=== PATIENT | male | born 1930 | race Caucasian/White ===

== ENCOUNTER 2016-11-30 16:29 | Inpatient (IN) | payer MEDICARE, BC ==
[2016-11-30 19:08] LABS: Glucose,Whole Blood 150 mg/dL (75-99)
[2016-11-30] MEDS ORDERED: MELATONIN 3 MG TABLET PO PRN (22:33)
[2016-11-30] MEDS ORDERED: FUROSEMIDE 10 MG/ML 10 ML VIAL IV STA (23:00)
[2016-12-01] MEDS: glipiZIDE 10 MG TAB PO SCH ×2 (00:01→08:22)
[2016-12-01 00:02] LABS: Glucose,Whole Blood 190 mg/dL (75-99)
[2016-12-01] MEDS: MIRTAZAPINE 15 MG TAB PO SCH ×2 (00:04→21:13)
[2016-12-01] MEDS: HYDROcodone/APAP 7.5-325MG 1 EACH TAB PO PRN ×3 (00:04→08:21)
[2016-12-01 05:56] LABS: Basophils # (A) 0.1 k/uL (0-0.2); Basophils % (A) 1 %; CH 29.9; CHCM 32.5; Eosinophils # (A) 0.2 k/uL (0-0.7); Eosinophils % (A) 3 %; HCT 35.4 % (39.0-53.0); HDW 2.81; HGB 11.1 gm/dL (13.0-17.5); Luc # (Auto) 0.17; Luc % (Auto) 3; Lymphocytes # (A) 1.8 k/uL (1.0-4.8); Lymphocytes % (A) 29 %; MCHC 31.5 g/dL (31.0-37.0); MCV 92.1 fL (80.0-100.0); Mean Platelet Volume 7.3; Monocytes # (A) 0.4 k/uL (0-1.0); Monocytes % (A) 7 %; Neutrophils # (A) 3.6 k/uL (1.3-7.7); Neutrophils % (A) 58 %; RBC 3.84 m/uL (4.30-5.90); RDW 15.7 % (11.5-15.5); WBC 6.3 k/uL (3.8-10.6); WBC (Perox) 6.11
[2016-12-01 05:59] LABS: INR 1.8 (<1.1); Prothrombin Time 17.5 sec (9.0-12.0)
[2016-12-01 06:02] LABS: Glucose,Whole Blood 90 mg/dL (75-99)
[2016-12-01 06:03] LABS: Calcium 9.2 mg/dL (8.4-10.2); Magnesium 1.9 mg/dL (1.6-2.3)
[2016-12-01] MEDS: INSULIN LISPRO (humaLOG) 300 UNIT/3 ML VIAL SQ SCH ×4 (06:16→21:14)
[2016-12-01] MEDS: ALBUTEROL NEBULIZED 2.5 MG/3 ML INHALATION SCH ×4 (07:04→20:47)
--- NOTE | 2016-12-01 07:45 | XR ---
EXAMINATION TYPE: XR chest 2V DATE OF EXAM: 12/01/2016 6:36 AM COMPARISON: 11/02/2015 HISTORY: 85-year-old male follow-up exam TECHNIQUE: Frontal and lateral views FINDINGS: Heart remains upper limits of normal in size. Mild diffuse interstitial prominence is noted with a pe rsistent right hilar prominence and blunting left costophrenic angle with hazy left basilar opacity. Left shoulder arthroplasty present. Left anterior chest wall pacemaker generator with right ventricul ar lead. IMPRESSION: 1. Correlate for mild CHF with pulmonary vascular congestion. Right hilar prominence is unchanged and could reflect underlying pulmonary arterial hypertension. 2. Small left pleural effusion with adjacent atelectasis and/or consolidation.
[2016-12-01] MEDS: ATENOLOL 25 MG TAB PO SCH ×2 (08:21→21:13)
[2016-12-01] MEDS: FUROSEMIDE 10 MG/ML 10 ML VIAL IV SCH ×2 (08:21→21:13)
[2016-12-01] MEDS: PANTOPRAZOLE 40 MG/10 ML VIAL IVP SCH (08:22)
[2016-12-01 08:49] LABS: Glucose,Whole Blood 212 mg/dL (75-99)
[2016-12-01] MEDS ORDERED: INSULIN DETEMIR 100 UNIT/ML 10 ML VIAL SQ SCH (09:00)
--- NOTE | 2016-12-01 09:25 | P.CRDCN ---
History of Present Illness Consult date: 12/01/16 Reason for Consult (text): CHF Chief complaint: shortness of breath and weight gain History of present illness: This is a pleasant 85-year-old gentleman who follows regularly with Dr. Bartlett in the office. He has a known history of atrial fibrillation, permanent pacemaker placement, congestive heart failure with last known EF 35%, hypertension, CAD, COPD requiring home oxygen, hyperlipidemia and diabetes mellitus. Presented to [place] emergency department with complaints of increasing shortness of breath with episodes of feeling his heart racing as well as some chest discomfort and a weight gain of 10 pounds in less than one week. He also had some complaints of dizziness during times of rapid heartbeat , no loss of consciousness. Chest x-ray showed mild CHF with pulmonary vascular congestion and BNP level was 3020. EKG showed atrial fibrillation with occasional paced beats and occasional PVCs. Patient has been on Lasix 60 mg IV push every 8 hours and is diuresing. Laboratory values show BUN 28 creatinine 1.43. Upon examination this morning, patient is sitting up in a chair. His main complaint this morning is of back pain for which he has chronic back pain and takes [place] at home. He feels his breathing is somewhat better however continues to complain of shortness of breath and occasional chest discomfort. Past Medical History Past Medical History: Atrial Fibrillation, Asthma, Coronary Artery Disease (CAD) , Heart Failure, COPD, CVA/TIA, Dementia, Diabetes Mellitus, Deep Vein Thrombosis (DVT), GERD/Reflux, Hyperlipidemia, Hypertension, Myocardial Infarction ([place]), Osteoarthritis (OA), Pneumonia, Pulmonary Embolus (PE), Rheumatoid Arthritis (RA) Additional Past Medical History / Comment(s): Peripheral vascular disease, chronic back pain, hiatal hernia,OCC CONSTIPATION, history of bowel obstruction , history of hiatal hernia. He has a 60% occlusion in NAD and some abnormalities in the right coronary artery based on the most recent cardiac catheterization from November 2014. The patient also has a permanent pacemaker in place. Patient's left anterior function is well-preserved.02 2 LITERS N/ C.insomnia, chropnic lower back pain"nerve damage", callus rt foot"gained 10# in a week" Last Myocardial Infarction Date:: 1967 History of Any Multi-Drug Resistant Organisms: None Reported Past Surgical History: Adenoidectomy, Appendectomy, Cholecystectomy, Heart Catheterization, Joint Replacement, Pacemaker, Tonsillectomy Additional Past Surgical History / Comment(s): lt shoulder replacement, na knee replacements, x5 back sx, x2 prostate, na cataracts sx-lens implants, sx for bowel obstruction Past Anesthesia/Blood Transfusion Reactions: Previous Problems w/ Anesthesia Additional Past Anesthesia/Blood Transfusion Reaction / Comment(s): once bp dropped and they held off on the sx. Type of Cardiac Device: Permanent Pacemaker Device Placement Date:: 2005? Past Psychological History: Anxiety Additional Psychological History / Comment(s): xanax Smoking Status: Former smoker Past Alcohol Use History: Heavy Additional Past Alcohol Use History / Comment(s): started smoking at age 14- smoked 1-2 ppd,quit 30 years ago, used to drink heavy but quit 12 years ago Past Drug Use History: None Reported - Past Family History Father Family Medical History: Cancer Additional Family Medical History / Comment(s): leukemia Mother Family Medical History: Cancer Additional Family Medical History / Comment(s): breast ca w/ mets to bone Medications and Allergies Home Medications Medication Instructions Recorded Confirmed Type Donepezil [Aricept] 10 mg PO DAILY 12/09/14 11/30/16 History Isosorbide Mononitrate ER [Imdur] 60 mg PO DAILY 12/09/14 11/30/16 History Lisinopril [Zestril] 10 mg PO DAILY 12/09/14 11/30/16 History Niacin [Niacin ER] 500 mg PO HS 12/09/14 11/30/16 History Omeprazole [PriLOSEC] 20 mg PO AC-BRKFST 12/09/14 11/30/16 History Spironolactone [Aldactone] 25 mg PO DAILY 12/09/14 11/30/16 History glipiZIDE [Glucotrol] 20 mg PO BID 12/09/14 11/30/16 History Insulin Detemir [Levemir] 16 unit SQ DAILY 08/03/15 11/30/16 History Potassium Chloride [Klor-Con 20] 20 meq PO BID 08/08/15 11/30/16 History ALPRAZolam [Xanax] 0.25 mg PO TID PRN 11/30/16 11/30/16 History Albuterol Inhaler [Ventolin Hfa 2 puff INHALATION RT-QID PRN 11/30/16 11/30/16 History Inhaler] Albuterol Nebulized [Ventolin 2.5 mg INHALATION RT-Q4H PRN 11/30/16 11/30/16 History Nebulized] Atenolol 25 mg PO BID 11/30/16 11/30/16 History Cyclobenzaprine [Flexeril] 10 mg PO TID 11/30/16 11/30/16 History DULoxetine HCL [Cymbalta] 30 mg PO BID 11/30/16 11/30/16 History Ergocalciferol [Vitamin D2] 50,000 unit PO Q7D 11/30/16 11/30/16 History Ferrous Sulfate [Feosol] 325 mg PO BID 11/30/16 11/30/16 History Furosemide [Lasix] 40 mg PO DAILY 11/30/16 11/30/16 History HYDROcodone/APAP 7.5-325MG [[place] 1 tab PO TID PRN 11/30/16 11/30/16 History 7.5-325] Insulin Lispro [humaLOG Kwikpen] 5 unit SQ AC-TID 11/30/16 11/30/16 History Magnesium Hydroxide [Milk of 2,400 mg PO HS PRN 11/30/16 11/30/16 History Magnesia] Magnesium Oxide 420 mg PO BID 11/30/16 11/30/16 History Mirtazapine 30 mg PO HS 11/30/16 11/30/16 History Multivitamins, Thera [Multivitamin] 1 tab PO DAILY 11/30/16 11/30/16 History Polyethylene Glycol 3350 [Miralax] 17 gm PO DAILY 11/30/16 11/30/16 History Warfarin [Coumadin] 5 mg PO DAILY 11/30/16 11/30/16 History traZODone HCL 150 mg PO HS 11/30/16 11/30/16 History Allergies Allergy/AdvReac Type Severity Reaction Status Date / Time diazepam [From Valium] Allergy Rash/Hives Verified 11/30/16 19:23 morphine Allergy Rash/Hives Verified 11/30/16 19:23 Penicillins Allergy Rash/Hives Verified 11/30/16 19:23 tetanus and diphtheria Allergy Swelling Verified 11/30/16 19:23 toxoids [tetanus & diphtheria toxoids] venom-honey bee Allergy Unknown Verified 11/30/16 19:23 [bee venom (honey bee)] Physical Exam Vitals: Vital Signs Temp Pulse Pulse Resp BP Pulse Ox 12/01/16 08:00 96.8 F L 83 22 141/68 96 12/01/16 07:14 56 L 12/01/16 07:04 56 L 12/01/16 04:00 98.0 F 53 L 18 115/60 98 12/01/16 00:00 98.1 F 82 18 120/64 99 11/30/16 20:00 98.1 F 81 18 119/60 98 11/30/16 18:56 98.2 F 77 20 117/66 99 Intake and Output 11/30/16 12/01/16 12/01/16 22:59 06:59 14:59 Output Total 150 1650 175 Balance -150 -1650 -175 Output: Urine 150 1650 175 Uretheral (Schwartz) 175 Other: Voiding Method Indwelling Catheter Indwelling Catheter Indwelling Catheter Weight 99.7 kg 99 kg PHYSICAL EXAMINATION: HEENT: Head is atraumatic, normocephalic. Pupils equal, round. Neck is supple. There is elevated jugular venous pressure. HEART EXAMINATION: Heart sounds irregular regular, S1 and S2 normal. No murmur or gallop heard. CHEST EXAMINATION: Lungs reveal diminished air entry bilaterally with crackles to bilateral lower lobes. No chest wall tenderness is noted on palpation or with deep breathing. ABDOMEN: Soft, nontender. Bowel sounds are heard. No organomegaly noted. Indwelling catheter in place with clear yellow urine. EXTREMITIES: 1+ peripheral pulses with evidence of trace peripheral edema and no calf tenderness noted. NEUROLOGIC patient is awake, alert and oriented x3. . Results 12/01/16 05:20 12/01/16 05:20 Coagulation 12/01/16 Range/Units 05:20 PT 17.5 H (9.0-12.0) sec CBC 12/01/16 Range/Units 05:20 WBC 6.3 (3.8-10.6) k/uL RBC 3.84 L (4.30-5.90) m/uL Hgb 11.1 L (13.0-17.5) gm/dL Hct 35.4 L (39.0-53.0) % Plt Count 143 L (150-450) k/uL Comprehensive Metabolic Panel 12/01/16 Range/Units 05:20 Sodium 144 (137-145) mmol/L Potassium 4.0 (3.5-5.1) mmol/L Chloride 100 (98-107) mmol/L Carbon Dioxide 35 H (22-30) mmol/L BUN 28 H (9-20) mg/dL Creatinine 1.43 H (0.66-1.25) mg/dL Glucose 80 (74-99) mg/dL Calcium 9.2 (8.4-10.2) mg/dL Current Medications Generic Name Dose Route Start Last Admin Trade Name Freq PRN Reason Stop Dose Admin Acetaminophen/Hydrocodone Bitart 1 each 11/30/16 22:57 12/01/16 08:21 [place] 7.5-325 PO 1 each TID PRN Administration Pain Albuterol Sulfate 2.5 mg 12/01/16 08:00 12/01/16 07:04 Ventolin Nebulized INHALATION 2.5 mg RT-QID NORMA Administration Atenolol 25 mg 12/01/16 09:00 12/01/16 08:21 Tenormin PO 25 mg BID NORMA Administration Furosemide 60 mg 12/01/16 09:00 12/01/16 08:21 Lasix IV 60 mg Q12HR NORMA Administration Glipizide 20 mg 11/30/16 22:30 12/01/16 08:22 Glucotrol PO 20 mg AC-BID NORMA Administration Insulin Detemir 16 unit 12/01/16 09:00 12/01/16 08:20 Levemir SQ 16 unit DAILY NORMA Administration Insulin Human Lispro 0 unit 12/01/16 07:30 12/01/16 06:16 Humalog SQ Not Given ACHS [facility] Protocol Melatonin 3 mg 11/30/16 22:33 12/01/16 00:04 Melatonin PO 3 mg HS PRN Administration sleep Mirtazapine 30 mg 11/30/16 22:30 12/01/16 00:04 Remeron PO 30 mg HS NORMA Administration Pantoprazole Sodium 40 mg 12/01/16 09:00 12/01/16 08:22 Protonix IVP 40 mg DAILY NORMA Administration Warfarin Sodium 5 mg 12/01/16 18:00 Coumadin PO 1800 NORMA Intake and Output 11/30/16 12/01/16 12/01/16 22:59 06:59 14:59 Output Total 150 1650 175 Balance -150 -1650 -175 Output: Urine 150 1650 175 Uretheral (Schwartz) 175 Other: Voiding Method Indwelling Catheter Indwelling Catheter Indwelling Catheter Weight 99.7 kg 99 kg 12/01/16 05:20 12/01/16 05:20 Assessment and Plan Plan: Assessment and plan #1 acute on chronic systolic congestive heart failure #2 hypertension #3 chronic atrial fibrillation, on Coumadin with subtherapeutic INR #4 coronary artery disease #5 COPD, oxygen dependent #6 diabetes mellitus #7 sick sinus syndrome, permanent pacemaker in place From cardiac standpoint, we recommend continuing IV Lasix. We will follow daily weights, intake and outputs and renal function. We will increase patient' s Coumadin dose slightly and follow INR to maintain between 2 and 3. We will resume the patient's beta savage, KIRTI inhibitor and Aldactone. We'll continue to follow the patient and provide further recommendations accordingly. 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 Patient was seen and examined.
[2016-12-01] MEDS: HYDROmorphone 1 MG/ML 1 ML SYRINGE IVP PRN ×6 (09:57→23:26)
[2016-12-01 11:10] LABS: Hemoglobin A1C 6.4 % (4.2-6.1)
[2016-12-01] MEDS: ISOSORBIDE MONONITRATE ER 60 MG TAB.ER.24H PO SCH (11:22)
[2016-12-01] MEDS: LISINOPRIL 10 MG TAB PO SCH (11:22)
[2016-12-01] MEDS: SPIRONOLACTONE 25 MG TAB PO SCH (11:22)
[2016-12-01 11:58] LABS: Glucose,Whole Blood 188 mg/dL (75-99)
[2016-12-01] MEDS: MAGNESIUM SULFATE-D5W PMX 1 GM in DEXTROSE/WATER 1 100ML.BAG IVPB SCH ×2 (15:15→17:18)
[2016-12-01 15:16] VITALS: BMI 32.2
--- NOTE | 2016-12-01 15:33 | P.HPIM ---
History of Present Illness H&P Date: 12/01/16 Chief Complaint: Difficulty breathing 85-year-old gentleman with history of systolic heart failure is admitted to the hospital from [place]. Patient probably has a history of heart failure with a EF of around 35% in the past. Patient over the last week. Has gained over 10 pounds. States that he has been compliant his diet and fluid resection. Patient was seen by his primary care doctor increase his Lasix dose from 20 mg a 40 mrem however patient continue to have difficulty breathing and increased swelling in his lower extremities hence was sent ER. Patient was triaged to [facility] for higher level of care. States to be feeling slightly better however continues to have difficulty breathing. Patient does complain of orthopnea and PND at this time. Denies having any chest pain, nausea, abdominal pain, change in bowel habits, urinary urgency or frequency. Patient currently has a Schwartz catheter at [facility] . Patient apparently has been weak over the last few weeks. Review of Systems All systems: negative (Noted in HPI) Past Medical History Past Medical History: Atrial Fibrillation, Asthma, Coronary Artery Disease (CAD) , Heart Failure, COPD, CVA/TIA, Dementia, Diabetes Mellitus, Deep Vein Thrombosis (DVT), GERD/Reflux, Hyperlipidemia, Hypertension, Myocardial Infarction ([place]), Osteoarthritis (OA), Pneumonia, Pulmonary Embolus ([place]), Rheumatoid Arthritis (RA) Additional Past Medical History / Comment(s): Peripheral vascular disease, chronic back pain, hiatal hernia,OCC CONSTIPATION, history of bowel obstruction , history of hiatal hernia. He has a 60% occlusion in NAD and some abnormalities in the right coronary artery based on the most recent cardiac catheterization from November 2014. The patient also has a permanent pacemaker in place. Patient's left anterior function is well-preserved.02 2 LITERS N/ C.insomnia, chropnic lower back pain"nerve damage", callus rt foot"gained 10# in a week" Last Myocardial Infarction Date:: 1967 History of Any Multi-Drug Resistant Organisms: None Reported Past Surgical History: Adenoidectomy, Appendectomy, Cholecystectomy, Heart Catheterization, Joint Replacement, Pacemaker, Tonsillectomy Additional Past Surgical History / Comment(s): lt shoulder replacement, na knee replacements, x5 back sx, x2 prostate, na cataracts sx-lens implants, sx for bowel obstruction Past Anesthesia/Blood Transfusion Reactions: Previous Problems w/ Anesthesia Additional Past Anesthesia/Blood Transfusion Reaction / Comment(s): once bp dropped and they held off on the sx. Type of Cardiac Device: Permanent Pacemaker Device Placement Date:: 2005? Past Psychological History: Anxiety Additional Psychological History / Comment(s): xanax Smoking Status: Former smoker Past Alcohol Use History: Heavy Additional Past Alcohol Use History / Comment(s): started smoking at age 14- smoked 1-2 ppd,quit 30 years ago, used to drink heavy but quit 12 years ago Past Drug Use History: None Reported - Past Family History Father Family Medical History: Cancer Additional Family Medical History / Comment(s): leukemia Mother Family Medical History: Cancer Additional Family Medical History / Comment(s): breast ca w/ mets to bone Medications and Allergies Home Medications Medication Instructions Recorded Confirmed Type Donepezil [Aricept] 10 mg PO DAILY 12/09/14 11/30/16 History Isosorbide Mononitrate ER [Imdur] 60 mg PO DAILY 12/09/14 11/30/16 History Lisinopril [Zestril] 10 mg PO DAILY 12/09/14 11/30/16 History Niacin [Niacin ER] 500 mg PO HS 12/09/14 11/30/16 History Omeprazole [PriLOSEC] 20 mg PO AC-BRKFST 12/09/14 11/30/16 History Spironolactone [Aldactone] 25 mg PO DAILY 12/09/14 11/30/16 History glipiZIDE [Glucotrol] 20 mg PO BID 12/09/14 11/30/16 History Insulin Detemir [Levemir] 16 unit SQ DAILY 08/03/15 11/30/16 History Potassium Chloride [Klor-Con 20] 20 meq PO BID 08/08/15 11/30/16 History ALPRAZolam [Xanax] 0.25 mg PO TID PRN 11/30/16 11/30/16 History Albuterol Inhaler [Ventolin Hfa 2 puff INHALATION RT-QID PRN 11/30/16 11/30/16 History Inhaler] Albuterol Nebulized [Ventolin 2.5 mg INHALATION RT-Q4H PRN 11/30/16 11/30/16 History Nebulized] Atenolol 25 mg PO BID 11/30/16 11/30/16 History Cyclobenzaprine [Flexeril] 10 mg PO TID 11/30/16 11/30/16 History DULoxetine HCL [Cymbalta] 30 mg PO BID 11/30/16 11/30/16 History Ergocalciferol [Vitamin D2] 50,000 unit PO Q7D 11/30/16 11/30/16 History Ferrous Sulfate [Feosol] 325 mg PO BID 11/30/16 11/30/16 History Furosemide [Lasix] 40 mg PO DAILY 11/30/16 11/30/16 History HYDROcodone/APAP 7.5-325MG [[place] 1 tab PO TID PRN 11/30/16 11/30/16 History 7.5-325] Insulin Lispro [humaLOG Kwikpen] 5 unit SQ AC-TID 11/30/16 11/30/16 History Magnesium Hydroxide [Milk of 2,400 mg PO HS PRN 11/30/16 11/30/16 History Magnesia] Magnesium Oxide 420 mg PO BID 11/30/16 11/30/16 History Mirtazapine 30 mg PO HS 11/30/16 11/30/16 History Multivitamins, Thera [Multivitamin] 1 tab PO DAILY 11/30/16 11/30/16 History Polyethylene Glycol 3350 [Miralax] 17 gm PO DAILY 11/30/16 11/30/16 History Warfarin [Coumadin] 5 mg PO DAILY 11/30/16 11/30/16 History traZODone HCL 150 mg PO HS 11/30/16 11/30/16 History Allergies Allergy/AdvReac Type Severity Reaction Status Date / Time diazepam [From Valium] Allergy Rash/Hives Verified 11/30/16 19:23 morphine Allergy Rash/Hives Verified 11/30/16 19:23 Penicillins Allergy Rash/Hives Verified 11/30/16 19:23 tetanus and diphtheria Allergy Swelling Verified 11/30/16 19:23 toxoids [tetanus & diphtheria toxoids] venom-honey bee Allergy Unknown Verified 11/30/16 19:23 [bee venom (honey bee)] Physical Exam Vitals: Vital Signs Temp Pulse Pulse Resp BP Pulse Ox 12/01/16 15:22 96.8 F L 89 20 101/58 100 12/01/16 11:36 65 18 12/01/16 11:35 97.0 F L 65 18 110/64 100 12/01/16 11:13 88 12/01/16 11:01 88 12/01/16 08:00 96.8 F L 83 22 141/68 96 12/01/16 07:14 56 L 12/01/16 07:04 56 L 12/01/16 04:00 98.0 F 53 L 18 115/60 98 12/01/16 00:00 98.1 F 82 18 120/64 99 11/30/16 20:00 98.1 F 81 18 119/60 98 11/30/16 18:56 98.2 F 77 20 117/66 99 Intake and Output 12/01/16 12/01/16 12/01/16 06:59 14:59 22:59 Intake Total 480 Output Total 1650 850 Balance -1650 -370 Intake: Oral 480 Output: Urine 1650 850 Uretheral (Schwartz) 850 Other: Voiding Method Indwelling Catheter Indwelling Catheter Weight 99 kg 99 kg Patient Weight 12/02/16 06:59 Weight 99 kg Gen. appearance alert oriented 3 Lungs crackles at the bases no wheezing or rhonchi. Heart S1-S2 heard S3 is not appreciated systolic murmurs appreciated that is 2 out of 6 in intensity. Abdomen is soft nontender no organomegaly Lower extremities 1+ pitting edema is appreciated Neurologically no focal motor or sensory deficits noted. Results CBC & Chem 7: 12/01/16 05:20 12/01/16 05:20 Labs: Abnormal Lab Results - Last 24 Hours (Table) 11/30/16 11/30/16 12/01/16 Range/Units 19:06 23:59 05:20 RBC (4.30-5.90) m/uL Hgb (13.0-17.5) gm/dL Hct (39.0-53.0) % RDW (11.5-15.5) % Plt Count (150-450) k/uL PT (9.0-12.0) sec Carbon Dioxide (22-30) mmol/L BUN (9-20) mg/dL Creatinine (0.66-1.25) mg/dL POC Glucose (mg/dL) 150 H 190 H (75-99) mg/dL Hemoglobin A1c 6.4 H (4.2-6.1) % 12/01/16 12/01/16 12/01/16 Range/Units 05:20 05:20 05:20 RBC 3.84 L (4.30-5.90) m/uL Hgb 11.1 L (13.0-17.5) gm/dL Hct 35.4 L (39.0-53.0) % RDW 15.7 H (11.5-15.5) % Plt Count 143 L (150-450) k/uL PT 17.5 H (9.0-12.0) sec Carbon Dioxide 35 H (22-30) mmol/L BUN 28 H (9-20) mg/dL Creatinine 1.43 H (0.66-1.25) mg/dL POC Glucose (mg/dL) (75-99) mg/dL Hemoglobin A1c (4.2-6.1) % 12/01/16 12/01/16 Range/Units 08:46 11:54 RBC (4.30-5.90) m/uL Hgb (13.0-17.5) gm/dL Hct (39.0-53.0) % RDW (11.5-15.5) % Plt Count (150-450) k/uL PT (9.0-12.0) sec Carbon Dioxide (22-30) mmol/L BUN (9-20) mg/dL Creatinine (0.66-1.25) mg/dL POC Glucose (mg/dL) 212 H 188 H (75-99) mg/dL Hemoglobin A1c (4.2-6.1) % Assessment and Plan Plan: #1 acute exacerbation of systolic heart failure #2 history of DVT #3 history of hypertension #4 history of dyslipidemia #5 diabetes mellitus type 2 #6 acute kidney injury secondary to #1 #7 nonsustained VT #86 sinus syndrome status post pacemaker placement Plan Continue IV Lasix to 60 mg twice a day. Glipizide will be discontinued due to kidney dysfunction. Levemir will be increased to 20 units. Echocardiogram was reviewed Cardiology is consulted. Blood pressure stable. Patient is having multiple PVCs however increase the beta savage to an acute exacerbation would cause the patient to go overtfailure. Hence continue ongoing care patient does have a pacemaker
[2016-12-01] MEDS ORDERED: DOCUSATE 100 MG CAP PO PRN (15:36)
[2016-12-01 17:20] LABS: Glucose,Whole Blood 78 mg/dL (75-99)
[2016-12-01] MEDS ORDERED: WARFARIN 7.5 MG TAB PO ONE (18:00)
[2016-12-01] MEDS ORDERED: WARFARIN 5 MG TAB PO SCH (18:00)
[2016-12-01 20:48] LABS: Glucose,Whole Blood 156 mg/dL (75-99)
[2016-12-01] MEDS: POTASSIUM CHLORIDE ER 20 MEQ TAB.ER PO SCH (21:13)
[2016-12-02] MEDS: HYDROmorphone 1 MG/ML 1 ML SYRINGE IVP PRN ×6 (03:25→23:03)
[2016-12-02 06:19] LABS: Basophils # (A) 0.1 k/uL (0-0.2); Basophils % (A) 1 %; CH 29.7; CHCM 32.2; Eosinophils # (A) 0.2 k/uL (0-0.7); Eosinophils % (A) 2 %; HCT 35.6 % (39.0-53.0); HDW 2.68; HGB 11.4 gm/dL (13.0-17.5); Luc # (Auto) 0.13; Luc % (Auto) 2; Lymphocytes # (A) 1.7 k/uL (1.0-4.8); Lymphocytes % (A) 23 %; MCH 29.6 pg (25.0-35.0); MCV 92.5 fL (80.0-100.0); Mean Platelet Volume 7.3; Monocytes # (A) 0.7 k/uL (0-1.0); Monocytes % (A) 9 %; Neutrophils # (A) 4.7 k/uL (1.3-7.7); Neutrophils % (A) 63 %; RBC 3.85 m/uL (4.30-5.90); RDW 15.6 % (11.5-15.5); WBC 7.4 k/uL (3.8-10.6); WBC (Perox) 7.66
[2016-12-02 06:20] LABS: Glucose,Whole Blood 156 mg/dL (75-99)
[2016-12-02] MEDS: INSULIN LISPRO (humaLOG) 300 UNIT/3 ML VIAL SQ SCH ×4 (06:27→21:33)
[2016-12-02 06:30] LABS: INR 1.6 (<1.1); Prothrombin Time 15.1 sec (9.0-12.0)
[2016-12-02 06:31] LABS: Calcium 9.1 mg/dL (8.4-10.2); Magnesium 2.1 mg/dL (1.6-2.3); Potassium 4.4 mmol/L (3.5-5.1); Total Bilirubin 0.9 mg/dL (0.2-1.3); Total Protein 6.9 g/dL (6.3-8.2)
[2016-12-02] MEDS: ALBUTEROL NEBULIZED 2.5 MG/3 ML INHALATION SCH ×4 (08:10→20:46)
[2016-12-02] MEDS: FUROSEMIDE 10 MG/ML 10 ML VIAL IV SCH ×2 (08:30→21:33)
[2016-12-02] MEDS: SPIRONOLACTONE 25 MG TAB PO SCH (08:30)
[2016-12-02] MEDS: POTASSIUM CHLORIDE ER 20 MEQ TAB.ER PO SCH ×2 (08:30→21:34)
[2016-12-02] MEDS: ISOSORBIDE MONONITRATE ER 60 MG TAB.ER.24H PO SCH (08:31)
[2016-12-02] MEDS: PANTOPRAZOLE 40 MG/10 ML VIAL IVP SCH (08:31)
[2016-12-02] MEDS: ATENOLOL 25 MG TAB PO SCH ×2 (08:31→21:33)
[2016-12-02] MEDS: LISINOPRIL 10 MG TAB PO SCH (08:31)
[2016-12-02] MEDS: INSULIN DETEMIR 100 UNIT/ML 10 ML VIAL SQ SCH (08:34)
--- NOTE | 2016-12-02 11:50 | P.PN ---
Subjective 85-year-old gentleman with history of systolic heart failure is admitted to the hospital from [place]. Patient probably has a history of heart failure with a EF of around 35% in the past. Patient over the last week. Has gained over 10 pounds. States that he has been compliant his diet and fluid resection. Patient was seen by his primary care doctor increase his Lasix dose from 20 mg a 40 mrem however patient continue to have difficulty breathing and increased swelling in his lower extremities hence was sent ER. Patient was triaged to [facility] for higher level of care. States to be feeling slightly better however continues to have difficulty breathing. Patient does complain of orthopnea and PND at this time. Denies having any chest pain, nausea, abdominal pain, change in bowel habits, urinary urgency or frequency. Patient currently has a Schwartz catheter at [facility] . Patient apparently has been weak over the last few weeks. 12/02/2016 States to be feeling significantly better. Denies having any chest pain. Patient is able to lay flat or night. Denies having any breathing difficulty. States that this is a Best he has felt in over a month. Objective - Vital Signs Vital signs: Vital Signs Temp 97.6 F 12/02/16 11:30 Pulse 69 12/02/16 11:30 Resp 20 12/02/16 11:30 BP 123/41 12/02/16 11:30 Pulse Ox 98 12/02/16 11:30 Intake & Output 12/01/16 12/02/16 12/02/16 18:59 06:59 18:59 Intake Total 600 720 240 Output Total 850 1825 750 Balance -250 -1105 -510 Weight 99 kg 99.4 kg Intake: Oral 600 720 240 Output: Urine 850 1825 750 Uretheral (Schwartz) 850 200 Other: Voiding Method Indwelling Catheter Indwelling Catheter Toilet Urinal # Voids 1 1 1 # Bowel Movements 0 - Exam Gen. appearance alert oriented 3 no distress Lungs trace crackles good air movement Heart S1-S2 heard S3 is not appreciated no murmurs appreciated Abdomen is soft nontender organomegaly Neurologically no focal motor or sensory deficits appreciated Lower extremities 1+ pitting edema bilaterally noted. - Labs CBC & Chem 7: 12/02/16 05:32 12/02/16 05:32 Labs: Abnormal Lab Results - Last 24 Hours (Table) 12/01/16 12/01/16 12/02/16 Range/Units 11:54 20:47 05:32 RBC (4.30-5.90) m/uL Hgb (13.0-17.5) gm/dL Hct (39.0-53.0) % RDW (11.5-15.5) % PT 15.1 H (9.0-12.0) sec Chloride (98-107) mmol/L Carbon Dioxide (22-30) mmol/L BUN (9-20) mg/dL Creatinine (0.66-1.25) mg/dL Glucose (74-99) mg/dL POC Glucose (mg/dL) 188 H 156 H (75-99) mg/dL 12/02/16 12/02/16 12/02/16 Range/Units 05:32 05:32 06:19 RBC 3.85 L (4.30-5.90) m/uL Hgb 11.4 L (13.0-17.5) gm/dL Hct 35.6 L (39.0-53.0) % RDW 15.6 H (11.5-15.5) % PT (9.0-12.0) sec Chloride 96 L (98-107) mmol/L Carbon Dioxide 33 H (22-30) mmol/L BUN 33 H (9-20) mg/dL Creatinine 1.60 H (0.66-1.25) mg/dL Glucose 153 H (74-99) mg/dL POC Glucose (mg/dL) 156 H (75-99) mg/dL Assessment and Plan Plan: #1 acute exacerbation of systolic heart failure #2 history of DVT #3 history of hypertension #4 history of dyslipidemia #5 diabetes mellitus type 2 #6 acute kidney injury secondary to #1 #7 nonsustained VT #86 sinus syndrome status post pacemaker placement Plan Continue IV diuresis. Patient is improving. Will likely need another 24-48 hours of inpatient care. Blood pressure stable. Patient is having multiple PVCs however increase the beta savage to an acute exacerbation would cause the patient to go overtfailure. Hence continue ongoing care patient does have a pacemaker
[2016-12-02 11:57] LABS: Glucose,Whole Blood 146 mg/dL (75-99)
--- NOTE | 2016-12-02 14:16 | P.PN ---
Subjective Principal diagnosis: CHF this is a pleasant 85-year-old gentleman who sees Dr. Bartlett as an outpatient with a known history of severe cardiomyopathy, chronic atrial fibrillation, status post pacemaker, as well as chronic respiratory failure,was admitted to the hospital with acute exacerbation of congestive heart failure. On follow-up with the patient today,he continues to be short of breath and not feeling well. He is on Lasix IV which I am going to continue. The last echocardiogram showed severe cardiomyopathy with an ejection fractionof 35%. I will continue the patient on the Lasix IV. Continue monitor the kidney function and electrolytes. He is on Coumadin regarding the A. fib. Objective - Vital Signs Vital signs: Vital Signs Temp 97.6 F 12/02/16 11:30 Pulse 66 12/02/16 13:23 Resp 20 12/02/16 11:30 BP 123/41 12/02/16 11:30 Pulse Ox 98 12/02/16 11:30 Intake & Output 12/01/16 12/02/16 12/02/16 18:59 06:59 18:59 Intake Total 600 720 480 Output Total 850 1825 750 Balance -250 -1105 -270 Weight 99 kg 99.4 kg Intake: Oral 600 720 480 Output: Urine 850 1825 750 Uretheral (Schwartz) 850 200 Other: Voiding Method Indwelling Catheter Indwelling Catheter Toilet Urinal # Voids 1 1 1 # Bowel Movements 0 - Constitutional General appearance: Present: no acute distress - Respiratory Respiratory: bilateral: rales - Cardiovascular Rhythm: irregularly irregular - Labs CBC & Chem 7: 12/02/16 05:32 12/02/16 05:32 Labs: Abnormal Lab Results - Last 24 Hours (Table) 12/01/16 12/02/16 12/02/16 Range/Units 20:47 05:32 05:32 RBC (4.30-5.90) m/uL Hgb (13.0-17.5) gm/dL Hct (39.0-53.0) % RDW (11.5-15.5) % PT 15.1 H (9.0-12.0) sec Chloride 96 L (98-107) mmol/L Carbon Dioxide 33 H (22-30) mmol/L BUN 33 H (9-20) mg/dL Creatinine 1.60 H (0.66-1.25) mg/dL Glucose 153 H (74-99) mg/dL POC Glucose (mg/dL) 156 H (75-99) mg/dL 12/02/16 12/02/16 12/02/16 Range/Units 05:32 06:19 11:56 RBC 3.85 L (4.30-5.90) m/uL Hgb 11.4 L (13.0-17.5) gm/dL Hct 35.6 L (39.0-53.0) % RDW 15.6 H (11.5-15.5) % PT (9.0-12.0) sec Chloride (98-107) mmol/L Carbon Dioxide (22-30) mmol/L BUN (9-20) mg/dL Creatinine (0.66-1.25) mg/dL Glucose (74-99) mg/dL POC Glucose (mg/dL) 156 H 146 H (75-99) mg/dL Assessment and Plan Plan: assessment #1 acute exacerbation of congestive heart failure secondary to systolic dysfunction #2 chronic atrial fibrillation with controlled heart rate #3 known severe cardiomyopathy #4 status post permanent pacemaker #5 chronic respiratory failure new Plan #1 continue the Lasix IV #2 continue monitor the kidney function and electrolytes #3 continue Coumadin and monitor INR
[2016-12-02 17:04] LABS: Glucose,Whole Blood 112 mg/dL (75-99)
[2016-12-02] MEDS ORDERED: MAGNESIUM HYDROXIDE 2,400 MG/10 ML CUP PO PRN (17:38)
[2016-12-02 20:33] LABS: Glucose,Whole Blood 129 mg/dL (75-99)
[2016-12-02] MEDS: HYDROcodone/APAP 7.5-325MG 1 EACH TAB PO PRN (21:31)
[2016-12-02] MEDS: MIRTAZAPINE 15 MG TAB PO SCH (21:34)
[2016-12-03] MEDS: HYDROmorphone 1 MG/ML 1 ML SYRINGE IVP PRN ×3 (04:00→21:20)
[2016-12-03 06:07] LABS: Glucose,Whole Blood 122 mg/dL (75-99)
[2016-12-03 06:32] VITALS: RESP 18
[2016-12-03 06:35] LABS: Basophils # (A) 0.1 k/uL (0-0.2); Basophils % (A) 1 %; CH 29.8; CHCM 32.6; Eosinophils # (A) 0.2 k/uL (0-0.7); Eosinophils % (A) 3 %; HCT 35.8 % (39.0-53.0); HDW 2.74; HGB 11.5 gm/dL (13.0-17.5); Luc # (Auto) 0.16; Luc % (Auto) 2; Lymphocytes % (A) 27 %; MCH 29.5 pg (25.0-35.0); MCHC 32.1 g/dL (31.0-37.0); Mean Platelet Volume 7.6; Monocytes # (A) 0.6 k/uL (0-1.0); Monocytes % (A) 8 %; Neutrophils # (A) 4.4 k/uL (1.3-7.7); Neutrophils % (A) 59 %; RDW 15.9 % (11.5-15.5); WBC 7.5 k/uL (3.8-10.6); WBC (Perox) 7.68
[2016-12-03 06:39] LABS: INR 1.6 (<1.1); Prothrombin Time 15.2 sec (9.0-12.0)
[2016-12-03] MEDS: INSULIN LISPRO (humaLOG) 300 UNIT/3 ML VIAL SQ SCH ×4 (06:44→21:19)
[2016-12-03 06:47] LABS: Calcium 9.4 mg/dL (8.4-10.2); Potassium 4.1 mmol/L (3.5-5.1); Total Bilirubin 1.1 mg/dL (0.2-1.3); Total Protein 6.9 g/dL (6.3-8.2)
[2016-12-03] MEDS: ATENOLOL 25 MG TAB PO SCH ×2 (08:10→21:19)
[2016-12-03] MEDS: FUROSEMIDE 10 MG/ML 10 ML VIAL IV SCH ×2 (08:10→21:19)
[2016-12-03] MEDS: ISOSORBIDE MONONITRATE ER 60 MG TAB.ER.24H PO SCH (08:10)
[2016-12-03] MEDS: SPIRONOLACTONE 25 MG TAB PO SCH (08:11)
[2016-12-03] MEDS: LISINOPRIL 10 MG TAB PO SCH (08:11)
[2016-12-03] MEDS: POTASSIUM CHLORIDE ER 20 MEQ TAB.ER PO SCH ×2 (08:11→21:20)
[2016-12-03] MEDS: PANTOPRAZOLE 40 MG/10 ML VIAL IVP SCH (08:11)
[2016-12-03] MEDS: HYDROcodone/APAP 7.5-325MG 1 EACH TAB PO PRN ×2 (08:11→16:44)
[2016-12-03] MEDS: INSULIN DETEMIR 100 UNIT/ML 10 ML VIAL SQ SCH (08:16)
[2016-12-03] MEDS: ALBUTEROL NEBULIZED 2.5 MG/3 ML INHALATION SCH ×4 (09:12→21:22)
--- NOTE | 2016-12-03 11:27 | P.PN ---
Subjective Principal diagnosis: CHF This is a pleasant 85-year-old gentleman who follows regularly with Dr. Bartlett in the office. He has a known history of severe cardiomyopathy, chronic persistent atrial fibrillation, admitted to the hospital with congestive cardiac failure. He continues to diurese well on IV Lasix. BUN 40, creatinine 1.5, INR 1.6, hemoglobin 11.5. Continues to be on Lasix 60 mg IV twice a day. Objective - Vital Signs Vital signs: Vital Signs Temp 97.1 F L 12/03/16 08:00 Pulse 88 12/03/16 09:22 Resp 18 12/03/16 04:00 BP 102/54 12/03/16 08:00 Pulse Ox 98 12/03/16 08:00 Intake & Output 12/02/16 12/03/16 12/03/16 18:59 06:59 18:59 Intake Total 600 200 Output Total 950 650 200 Balance -350 -650 0 Weight 100 kg Intake: Oral 600 200 Output: Urine 950 650 200 Uretheral (Schwartz) 200 Other: Voiding Method Toilet Toilet Urinal Urinal # Voids 1 1 - Exam PHYSICAL EXAMINATION: HEENT: Head is atraumatic, normocephalic. Pupils equal, round. Neck is supple. There is elevated jugular venous pressure. HEART EXAMINATION: S1 and S2 irregular irregular systolic murmur heard. CHEST EXAMINATION: Lungs are clear with diminished air entry to bilateral bases. ABDOMEN: Soft, obese, nontender. Bowel sounds are heard. No organomegaly noted. EXTREMITIES: 2+ peripheral pulses with 1+ evidence of peripheral edema and no calf tenderness noted. NEUROLOGIC patient is awake, alert and oriented -3. . - Labs CBC & Chem 7: 12/03/16 05:40 12/03/16 05:40 Labs: Abnormal Lab Results - Last 24 Hours (Table) 12/02/16 12/02/16 12/02/16 Range/Units 11:56 17:00 20:28 RBC (4.30-5.90) m/uL Hgb (13.0-17.5) gm/dL Hct (39.0-53.0) % RDW (11.5-15.5) % PT (9.0-12.0) sec Chloride (98-107) mmol/L Carbon Dioxide (22-30) mmol/L BUN (9-20) mg/dL Creatinine (0.66-1.25) mg/dL Glucose (74-99) mg/dL POC Glucose (mg/dL) 146 H 112 H 129 H (75-99) mg/dL 12/03/16 12/03/16 12/03/16 Range/Units 05:40 05:40 05:40 RBC 3.90 L (4.30-5.90) m/uL Hgb 11.5 L (13.0-17.5) gm/dL Hct 35.8 L (39.0-53.0) % RDW 15.9 H (11.5-15.5) % PT 15.2 H (9.0-12.0) sec Chloride 97 L (98-107) mmol/L Carbon Dioxide 33 H (22-30) mmol/L BUN 40 H (9-20) mg/dL Creatinine 1.50 H (0.66-1.25) mg/dL Glucose 128 H (74-99) mg/dL POC Glucose (mg/dL) (75-99) mg/dL 12/03/16 Range/Units 06:00 RBC (4.30-5.90) m/uL Hgb (13.0-17.5) gm/dL Hct (39.0-53.0) % RDW (11.5-15.5) % PT (9.0-12.0) sec Chloride (98-107) mmol/L Carbon Dioxide (22-30) mmol/L BUN (9-20) mg/dL Creatinine (0.66-1.25) mg/dL Glucose (74-99) mg/dL POC Glucose (mg/dL) 122 H (75-99) mg/dL Assessment and Plan (1) Systolic CHF, acute on chronic Status: Acute (2) Chronic a-fib Status: Acute (3) Diabetes Status: Acute (4) HTN (hypertension) Status: Acute (5) Hyperlipemia Status: Acute (6) PVD (peripheral vascular disease) Status: Acute (7) Pacemaker Status: Acute (8) Ischemic cardiomyopathy Status: Acute Plan: From cardiology's perspective, we will recommend to continue current dose of IV Lasix. Check daily lytes BUN and creatinine along with daily weights. Give 5 mg of Coumadin today. DNP note has been reviewed, I agree with a documented findings and plan of care. Patient was seen and examined.
[2016-12-03 12:07] LABS: Glucose,Whole Blood 174 mg/dL (75-99)
--- NOTE | 2016-12-03 12:41 | CDI ---
In responding to this query, please exercise your independent professional judgment. The [facility] Coding Staff and Clinical Documentation Specialists appreciate your assistance in clarifying documentation, maintaining compliance with coding guidelines, accurately documenting patients condition and capturing severity of illness. The fact that a question is asked does not imply that any particular answer is desired or expected. Communication forms are a method of clarifying documentation and are not made part of the Legal Health Record. Thank you in advance for your clarification. Last Revision, January 2016 Mohit Rose [address] [facility] [place] [address] Documentation Clarification Form Date: 12/03/2016 12:35:00 PM From: Sarah De La Cruz Admit Date: 11/30/2016 6:45:00 PM Patient Name: Chan Chen Visit Number: [id number] Dr. Ronal Kunz History/Risk Factors: CHF COPD Afib CAD Diabetes Mellitus Home O2 Exsmoker Clinical Indicators: Vital signs: RR 20, O2 sats 99% on 2L nasal cannula Cardiology has documented 'chronic respiratory failure' Treatment: Breathing tx IV Lasix O2 nasal cannula 2L In your professional opinion, can you please clarify if these findings signify one of the following conditions? o Chronic Respiratory failure with hypercapnia o Chronic Respiratory failure with hypoxia o Other Diagnosis, please specify o Unable to determine Please document in your progress notes and discharge summary in order to capture severity of illness and risk of mortality. Include clinical findings that support your diagnosis. FYI: Press F11 to launch patient chart. ___x__ Place X here if this finding has no clinical significance, is not applicable or if you are not able to provide any additional documentation. LEAH
--- NOTE | 2016-12-03 16:36 | P.PN ---
Subjective 85-year-old gentleman with history of systolic heart failure is admitted to the hospital from [place]. Patient probably has a history of heart failure with a EF of around 35% in the past. Patient over the last week. Has gained over 10 pounds. States that he has been compliant his diet and fluid resection. Patient was seen by his primary care doctor increase his Lasix dose from 20 mg a 40 mrem however patient continue to have difficulty breathing and increased swelling in his lower extremities hence was sent ER. Patient was triaged to [facility] for higher level of care. States to be feeling slightly better however continues to have difficulty breathing. Patient does complain of orthopnea and PND at this time. Denies having any chest pain, nausea, abdominal pain, change in bowel habits, urinary urgency or frequency. Patient currently has a Schwartz catheter at [facility] . Patient apparently has been weak over the last few weeks. 12/02/2016 States to be feeling significantly better. Denies having any chest pain. Patient is able to lay flat or night. Denies having any breathing difficulty. States that this is a Best he has felt in over a month. 12/03/16 States to feeling slightly better. States to be weak. Has not had a bm in a few days. Objective - Vital Signs Vital signs: Vital Signs Temp 97.1 F L 12/03/16 08:00 Pulse 90 12/03/16 16:08 Resp 18 12/03/16 04:00 BP 102/67 12/03/16 12:00 Pulse Ox 96 12/03/16 12:00 Intake & Output 12/02/16 12/03/16 12/03/16 18:59 06:59 18:59 Intake Total 600 200 Output Total 950 650 200 Balance -350 -650 0 Weight 100 kg Intake: Oral 600 200 Output: Urine 950 650 200 Uretheral (Schwartz) 200 Other: Voiding Method Toilet Toilet Urinal Urinal # Voids 1 1 - Exam Gen. appearance alert oriented 3 no distress Lungs trace crackles good air movement Heart S1-S2 heard S3 is not appreciated no murmurs appreciated Abdomen is soft nontender organomegaly Neurologically no focal motor or sensory deficits appreciated Lower extremities 1+ pitting edema bilaterally noted. - Labs CBC & Chem 7: 12/03/16 05:40 12/03/16 05:40 Labs: Abnormal Lab Results - Last 24 Hours (Table) 12/02/16 12/02/16 12/03/16 Range/Units 17:00 20:28 05:40 RBC (4.30-5.90) m/uL Hgb (13.0-17.5) gm/dL Hct (39.0-53.0) % RDW (11.5-15.5) % PT 15.2 H (9.0-12.0) sec Chloride (98-107) mmol/L Carbon Dioxide (22-30) mmol/L BUN (9-20) mg/dL Creatinine (0.66-1.25) mg/dL Glucose (74-99) mg/dL POC Glucose (mg/dL) 112 H 129 H (75-99) mg/dL 12/03/16 12/03/16 12/03/16 Range/Units 05:40 05:40 06:00 RBC 3.90 L (4.30-5.90) m/uL Hgb 11.5 L (13.0-17.5) gm/dL Hct 35.8 L (39.0-53.0) % RDW 15.9 H (11.5-15.5) % PT (9.0-12.0) sec Chloride 97 L (98-107) mmol/L Carbon Dioxide 33 H (22-30) mmol/L BUN 40 H (9-20) mg/dL Creatinine 1.50 H (0.66-1.25) mg/dL Glucose 128 H (74-99) mg/dL POC Glucose (mg/dL) 122 H (75-99) mg/dL 12/03/16 Range/Units 12:04 RBC (4.30-5.90) m/uL Hgb (13.0-17.5) gm/dL Hct (39.0-53.0) % RDW (11.5-15.5) % PT (9.0-12.0) sec Chloride (98-107) mmol/L Carbon Dioxide (22-30) mmol/L BUN (9-20) mg/dL Creatinine (0.66-1.25) mg/dL Glucose (74-99) mg/dL POC Glucose (mg/dL) 174 H (75-99) mg/dL Assessment and Plan Plan: #1 acute exacerbation of systolic heart failure #2 history of DVT #3 history of hypertension #4 history of dyslipidemia #5 diabetes mellitus type 2 #6 acute kidney injury secondary to #1 #7 nonsustained VT #86 sinus syndrome status post pacemaker placement #9 Chronic hypoxic respiratory failure on 2-3 l at home. Plan Continue IV diuresis. Patient is improving. CXR reviewed. Dulcolax suppository. PT consult. Repeat labs moises.
[2016-12-03] MEDS ORDERED: BISACODYL 10 MG SUPP RECTAL PRN (16:45)
[2016-12-03 16:52] LABS: Glucose,Whole Blood 92 mg/dL (75-99)
[2016-12-03] MEDS ORDERED: WARFARIN 5 MG TAB PO ONE (18:00)
[2016-12-03 21:05] LABS: Glucose,Whole Blood 162 mg/dL (75-99)
[2016-12-03] MEDS: MIRTAZAPINE 15 MG TAB PO SCH (21:20)
[2016-12-04] MEDS: HYDROmorphone 1 MG/ML 1 ML SYRINGE IVP PRN ×5 (02:04→23:33)
[2016-12-04 06:02] LABS: Glucose,Whole Blood 181 mg/dL (75-99)
[2016-12-04] MEDS: INSULIN LISPRO (humaLOG) 300 UNIT/3 ML VIAL SQ SCH ×4 (06:35→23:36)
[2016-12-04 06:52] LABS: INR 1.4 (<1.1); Prothrombin Time 13.8 sec (9.0-12.0)
[2016-12-04 07:13] LABS: Calcium 9.4 mg/dL (8.4-10.2); Total Bilirubin 1.4 mg/dL (0.2-1.3); Total Protein 7.5 g/dL (6.3-8.2)
[2016-12-04 07:31] LABS: Basophils # (A) 0.1 k/uL (0-0.2); Basophils % (A) 1 %; CH 29.5; CHCM 31.1; Eosinophils # (A) 0.3 k/uL (0-0.7); Eosinophils % (A) 3 %; HCT 38.3 % (39.0-53.0); HDW 2.69; Hypochromasia Slight; Luc # (Auto) 0.22; Luc % (Auto) 2; Lymphocytes # (A) 2.2 k/uL (1.0-4.8); Lymphocytes % (A) 24 %; MCH 29.9 pg (25.0-35.0); MCHC 31.4 g/dL (31.0-37.0); MCV 95.2 fL (80.0-100.0); Mean Platelet Volume 7.8; Monocytes # (A) 0.7 k/uL (0-1.0); Monocytes % (A) 8 %; Neutrophils # (A) 5.8 k/uL (1.3-7.7); Neutrophils % (A) 63 %; RBC 4.03 m/uL (4.30-5.90); RDW 15.4 % (11.5-15.5); WBC 9.2 k/uL (3.8-10.6); WBC (Perox) 9.52
[2016-12-04] MEDS: ALBUTEROL NEBULIZED 2.5 MG/3 ML INHALATION SCH ×4 (08:25→20:23)
[2016-12-04 08:32] LABS: Glucose,Whole Blood 130 mg/dL (75-99)
[2016-12-04] MEDS: POTASSIUM CHLORIDE ER 20 MEQ TAB.ER PO SCH ×2 (08:42→20:49)
[2016-12-04] MEDS: ATENOLOL 25 MG TAB PO SCH ×2 (08:42→20:48)
[2016-12-04] MEDS: SPIRONOLACTONE 25 MG TAB PO SCH (08:43)
[2016-12-04] MEDS: FUROSEMIDE 10 MG/ML 10 ML VIAL IV SCH ×2 (08:43→20:48)
[2016-12-04] MEDS: LISINOPRIL 10 MG TAB PO SCH (08:43)
[2016-12-04] MEDS: PANTOPRAZOLE 40 MG/10 ML VIAL IVP SCH (08:43)
[2016-12-04] MEDS: HYDROcodone/APAP 7.5-325MG 1 EACH TAB PO PRN ×2 (08:46→14:53)
[2016-12-04] MEDS: INSULIN DETEMIR 100 UNIT/ML 10 ML VIAL SQ SCH (08:46)
[2016-12-04] MEDS: ISOSORBIDE MONONITRATE ER 60 MG TAB.ER.24H PO SCH (11:46)
[2016-12-04 11:57] LABS: Glucose,Whole Blood 171 mg/dL (75-99)
--- NOTE | 2016-12-04 14:10 | P.PN ---
Subjective Principal diagnosis: CHF This is a pleasant 85-year-old gentleman who follows regularly with Dr. Bartlett in the office. He has a known history of severe cardiomyopathy, chronic persistent atrial fibrillation, admitted to the hospital with congestive cardiac failure. He continues to diurese well on IV Lasix. The weight today is down 2 kg. Creatinine 1.3. On Lasix 60 mg IV every 12 hourly. Objective - Vital Signs Vital signs: Vital Signs Temp 97.8 F 12/04/16 11:01 Pulse 82 12/04/16 11:53 Resp 18 12/04/16 11:01 BP 128/62 12/04/16 11:01 Pulse Ox 94 L 12/04/16 11:01 Intake & Output 12/03/16 12/04/16 12/04/16 18:59 06:59 18:59 Intake Total 200 180 Output Total 200 650 Balance 0 -650 180 Weight 98 kg Intake: Oral 200 180 Output: Urine 200 650 Other: Voiding Method Toilet Toilet Urinal Urinal # Voids 1 # Bowel Movements 1 - Exam PHYSICAL EXAMINATION: HEENT: Head is atraumatic, normocephalic. Pupils equal, round. Neck is supple. There is elevated jugular venous pressure. HEART EXAMINATION: S1 and S2 irregular irregular systolic murmur heard. CHEST EXAMINATION: Lungs are clear with diminished air entry to bilateral bases. ABDOMEN: Soft, obese, nontender. Bowel sounds are heard. No organomegaly noted. EXTREMITIES: 2+ peripheral pulses with 1+ evidence of peripheral edema and no calf tenderness noted. NEUROLOGIC patient is awake, alert and oriented -3. . - Labs CBC & Chem 7: 12/04/16 05:37 12/04/16 05:37 Labs: Abnormal Lab Results - Last 24 Hours (Table) 12/03/16 12/04/16 12/04/16 Range/Units 21:04 05:37 05:37 RBC (4.30-5.90) m/uL Hgb (13.0-17.5) gm/dL Hct (39.0-53.0) % PT 13.8 H (9.0-12.0) sec Chloride 95 L (98-107) mmol/L Carbon Dioxide 33 H (22-30) mmol/L BUN 44 H (9-20) mg/dL Creatinine 1.38 H (0.66-1.25) mg/dL Glucose 180 H (74-99) mg/dL POC Glucose (mg/dL) 162 H (75-99) mg/dL Total Bilirubin 1.4 H (0.2-1.3) mg/dL Alkaline Phosphatase 127 H (38-126) U/L 12/04/16 12/04/16 12/04/16 Range/Units 05:37 06:00 08:28 RBC 4.03 L (4.30-5.90) m/uL Hgb 12.0 L (13.0-17.5) gm/dL Hct 38.3 L (39.0-53.0) % PT (9.0-12.0) sec Chloride (98-107) mmol/L Carbon Dioxide (22-30) mmol/L BUN (9-20) mg/dL Creatinine (0.66-1.25) mg/dL Glucose (74-99) mg/dL POC Glucose (mg/dL) 181 H 130 H (75-99) mg/dL Total Bilirubin (0.2-1.3) mg/dL Alkaline Phosphatase (38-126) U/L 12/04/16 Range/Units 11:47 RBC (4.30-5.90) m/uL Hgb (13.0-17.5) gm/dL Hct (39.0-53.0) % PT (9.0-12.0) sec Chloride (98-107) mmol/L Carbon Dioxide (22-30) mmol/L BUN (9-20) mg/dL Creatinine (0.66-1.25) mg/dL Glucose (74-99) mg/dL POC Glucose (mg/dL) 171 H (75-99) mg/dL Total Bilirubin (0.2-1.3) mg/dL Alkaline Phosphatase (38-126) U/L Assessment and Plan (1) Systolic CHF, acute on chronic Status: Acute (2) Chronic a-fib Status: Acute (3) Diabetes Status: Acute (4) HTN (hypertension) Status: Acute (5) Hyperlipemia Status: Acute (6) PVD (peripheral vascular disease) Status: Acute (7) Pacemaker Status: Acute (8) Ischemic cardiomyopathy Status: Acute Plan: From cardiology's perspective, we will recommend to continue current dose of IV Lasix. We will repeat a chest x-ray tomorrow. We'll also recheck a BNP level. Check daily lytes BUN and creatinine along with daily weights. Give 5 mg of Coumadin today. PT/INR in the morning. DNP note has been reviewed, I agree with a documented findings and plan of care. Patient was seen and examined.
--- NOTE | 2016-12-04 16:03 | XR ---
EXAMINATION TYPE: XR chest 2V DATE OF EXAM: 12/04/2016 3:48 PM COMPARISON: 12/01/2016 HISTORY: Shortness of breath TECHNIQUE: Frontal and lateral views of the chest are obtained. FINDINGS: Scattered senescent parenchymal changes noted. Hyperinflation compatible with COPD. Left basilar increased density may reflect atelectasis, infiltrate and/or effusion. Heart size is stable. Mediastinal structures are stable and grossly unremarkable. No evidence for hilar prominence. Degenerative changes dorsal spine. IMPRESSION: 1.Left basilar increased density may reflect atelectasis, infiltrate and/or effusion.
[2016-12-04 17:41] LABS: Glucose,Whole Blood 135 mg/dL (75-99)
[2016-12-04] MEDS ORDERED: WARFARIN 5 MG TAB PO ONE (18:00)
--- NOTE | 2016-12-04 18:01 | P.PN ---
Subjective 85-year-old gentleman with history of systolic heart failure is admitted to the hospital from [place]. Patient probably has a history of heart failure with a EF of around 35% in the past. Patient over the last week. Has gained over 10 pounds. States that he has been compliant his diet and fluid resection. Patient was seen by his primary care doctor increase his Lasix dose from 20 mg a 40 mrem however patient continue to have difficulty breathing and increased swelling in his lower extremities hence was sent ER. Patient was triaged to [facility] for higher level of care. States to be feeling slightly better however continues to have difficulty breathing. Patient does complain of orthopnea and PND at this time. Denies having any chest pain, nausea, abdominal pain, change in bowel habits, urinary urgency or frequency. Patient currently has a Schwartz catheter at [facility] . Patient apparently has been weak over the last few weeks. 12/02/2016 States to be feeling significantly better. Denies having any chest pain. Patient is able to lay flat or night. Denies having any breathing difficulty. States that this is a Best he has felt in over a month. 12/03/16 States to feeling slightly better. States to be weak. Has not had a bm in a few days. 12/04/16 Was tired with minimal exertion this am. however was able to ambulate over 100ft without difficulty. No complaints of chest pain, n/v, FRED during my examination. Objective - Vital Signs Vital signs: Vital Signs Temp 98.4 F 12/04/16 15:02 Pulse 82 12/04/16 15:02 Resp 18 12/04/16 15:02 BP 108/60 12/04/16 15:02 Pulse Ox 95 12/04/16 15:02 Intake & Output 12/03/16 12/04/16 12/04/16 18:59 06:59 18:59 Intake Total 200 180 Output Total 354 123 6516 Balance 0 -650 -820 Weight 98 kg Intake: Oral 200 180 Output: Urine 423 410 8298 Other: Voiding Method Toilet Toilet Urinal Urinal # Bowel Movements 1 - Exam Gen. appearance alert oriented 3 no distress Lungs trace crackles good air movement Heart S1-S2 heard S3 is not appreciated no murmurs appreciated Abdomen is soft nontender organomegaly Neurologically no focal motor or sensory deficits appreciated Lower extremities 1+ pitting edema bilaterally noted.Improving. - Labs CBC & Chem 7: 12/04/16 05:37 12/04/16 05:37 Labs: Abnormal Lab Results - Last 24 Hours (Table) 12/03/16 12/04/16 12/04/16 Range/Units 21:04 05:37 05:37 RBC (4.30-5.90) m/uL Hgb (13.0-17.5) gm/dL Hct (39.0-53.0) % PT 13.8 H (9.0-12.0) sec Chloride 95 L (98-107) mmol/L Carbon Dioxide 33 H (22-30) mmol/L BUN 44 H (9-20) mg/dL Creatinine 1.38 H (0.66-1.25) mg/dL Glucose 180 H (74-99) mg/dL POC Glucose (mg/dL) 162 H (75-99) mg/dL Total Bilirubin 1.4 H (0.2-1.3) mg/dL Alkaline Phosphatase 127 H (38-126) U/L 12/04/16 12/04/16 12/04/16 Range/Units 05:37 06:00 08:28 RBC 4.03 L (4.30-5.90) m/uL Hgb 12.0 L (13.0-17.5) gm/dL Hct 38.3 L (39.0-53.0) % PT (9.0-12.0) sec Chloride (98-107) mmol/L Carbon Dioxide (22-30) mmol/L BUN (9-20) mg/dL Creatinine (0.66-1.25) mg/dL Glucose (74-99) mg/dL POC Glucose (mg/dL) 181 H 130 H (75-99) mg/dL Total Bilirubin (0.2-1.3) mg/dL Alkaline Phosphatase (38-126) U/L 12/04/16 12/04/16 Range/Units 11:47 16:49 RBC (4.30-5.90) m/uL Hgb (13.0-17.5) gm/dL Hct (39.0-53.0) % PT (9.0-12.0) sec Chloride (98-107) mmol/L Carbon Dioxide (22-30) mmol/L BUN (9-20) mg/dL Creatinine (0.66-1.25) mg/dL Glucose (74-99) mg/dL POC Glucose (mg/dL) 171 H 135 H (75-99) mg/dL Total Bilirubin (0.2-1.3) mg/dL Alkaline Phosphatase (38-126) U/L Assessment and Plan Plan: #1 acute exacerbation of systolic heart failure #2 history of DVT #3 history of hypertension #4 history of dyslipidemia #5 diabetes mellitus type 2 #6 acute kidney injury secondary to #1 #7 nonsustained VT #86 sinus syndrome status post pacemaker placement #9 Chronic hypoxic respiratory failure on 2-3 l at home. Plan Continue IV diuresis. Patient is improving. CXR reviewed. Continue ongoing care for another 24 hrs CXR findings likely atelectasis, no clinical signs of PNA> Dc home with home care. after a get up and go test moises am.
[2016-12-04] MEDS: MIRTAZAPINE 15 MG TAB PO SCH (20:49)
[2016-12-04 21:16] LABS: Glucose,Whole Blood 142 mg/dL (75-99)
[2016-12-05] MEDS: HYDROmorphone 1 MG/ML 1 ML SYRINGE IVP PRN ×3 (04:15→21:37)
[2016-12-05 06:14] LABS: Glucose,Whole Blood 170 mg/dL (75-99)
[2016-12-05 06:33] LABS: Basophils # (A) 0.1 k/uL (0-0.2); Basophils % (A) 1 %; CH 30.1; CHCM 32.5; Eosinophils # (A) 0.4 k/uL (0-0.7); Eosinophils % (A) 5 %; HDW 2.68; HGB 12.2 gm/dL (13.0-17.5); Luc # (Auto) 0.15; Luc % (Auto) 2; Lymphocytes # (A) 1.9 k/uL (1.0-4.8); Lymphocytes % (A) 24 %; MCHC 31.2 g/dL (31.0-37.0); MCV 92.9 fL (80.0-100.0); Mean Platelet Volume 7.5; Monocytes # (A) 0.7 k/uL (0-1.0); Monocytes % (A) 9 %; Neutrophils # (A) 4.7 k/uL (1.3-7.7); Neutrophils % (A) 60 %; RDW 15.6 % (11.5-15.5); WBC 7.9 k/uL (3.8-10.6); WBC (Perox) 7.53
[2016-12-05 06:38] LABS: INR 1.4 (<1.1); Prothrombin Time 13.6 sec (9.0-12.0)
[2016-12-05 06:40] LABS: Calcium 9.3 mg/dL (8.4-10.2); Magnesium 1.8 mg/dL (1.6-2.3); Potassium 4.5 mmol/L (3.5-5.1); Total Bilirubin 1.2 mg/dL (0.2-1.3); Total Protein 7.5 g/dL (6.3-8.2)
[2016-12-05] MEDS: INSULIN LISPRO (humaLOG) 300 UNIT/3 ML VIAL SQ SCH ×4 (06:52→21:36)
[2016-12-05] MEDS: LISINOPRIL 10 MG TAB PO SCH (08:23)
[2016-12-05] MEDS: FUROSEMIDE 10 MG/ML 10 ML VIAL IV SCH (08:23)
[2016-12-05] MEDS: ISOSORBIDE MONONITRATE ER 60 MG TAB.ER.24H PO SCH (08:23)
[2016-12-05] MEDS: PANTOPRAZOLE 40 MG/10 ML VIAL IVP SCH (08:24)
[2016-12-05] MEDS: ATENOLOL 25 MG TAB PO SCH ×2 (08:24→21:36)
[2016-12-05] MEDS: POTASSIUM CHLORIDE ER 20 MEQ TAB.ER PO SCH ×2 (08:24→21:36)
[2016-12-05] MEDS: SPIRONOLACTONE 25 MG TAB PO SCH (08:24)
[2016-12-05] MEDS: INSULIN DETEMIR 100 UNIT/ML 10 ML VIAL SQ SCH (08:28)
[2016-12-05] MEDS: HYDROcodone/APAP 7.5-325MG 1 EACH TAB PO PRN ×2 (10:30→17:46)
--- NOTE | 2016-12-05 11:00 | ECHOF ---
Referral Reason:lv function MEASUREMENTS -------- HEIGHT: 180.3 cm WEIGHT: 97.1 kg BP: 91/46 IVSd: 1.0 cm (0.6 - 1.1) LVIDd: 4.4 cm (3.9 - 5.3) LVPWd: 1.2 cm (0.6 - 1.1) IVSs: 1.6 cm LVIDs: 2.6 cm LVPWs: 1.8 cm LAESV Index (A-L): 38.87 ml/m Ao Diam: 3.5 cm (2.0 - 3.7) AV Cusp: 2.0 cm (1.5 - 2.6) LA Diam: 3.3 cm (2.7 - 3.8) MV EXCURSION: 19.089 mm (> 18.000) MV EF SLOPE: 88 mm/s (70 - 150) EPSS: 2.6 cm MV E Toñito: 1.06 m/s MV DecT: 215 ms MV A [place]ñito: 0.45 m/s MV E/A Ratio: 2.35 RAP: 5.00 mmHg RVSP: 36.41 mmHg FINDINGS -------- Sinus rhythm with extra systolic beats. This was a technically good study. There is mild concentric left ventricular hypertrophy. Overall left ventricular systolic function is mildly impaired with, an EF between 45 - 50 %. Basal inferior LV wall motion is hypokinetic. Mid inferior LV wall motion is hypokinetic. The right ventricle is normal in size and function. LA is moderately dilated 34-39 ml/m2 The right atrium is normal in size. Aortic valve is trileaflet and is moderately thickened. The mitral valve leaflets are mildly thickened. Mild mitral annular calcification present. Mild mitral regurgitation is present. Mild tricuspid regurgitation present. The right ventricular systolic pressure, as measured by Doppler, is 36.41mmHg. Pulmonic valve appears structurally normal. The aortic root, ascending aorta and aortic arch are normal. The pericardium is normal. CONCLUSIONS -------- 1. Sinus rhythm with extra systolic beats. 2. Aortic valve is trileaflet and is moderately thickened. 3. The mitral valve leaflets are mildly thickened. 4. Mild mitral annular calcification present. 5. Mild mitral regurgitation is present. 6. Mild tricuspid regurgitation present. 7. The right ventricular systolic pressure, as measured by Doppler, is 36.41mmHg. 8. Pulmonic valve appears structurally normal. 9. The aortic root, ascending aorta and aortic arch are normal. 10. The pericardium is normal. 11. This was a technically good study. 12. There is mild concentric left ventricular hypertrophy. 13. Overall left ventricular systolic function is mildly impaired with, an EF between 45 - 50 %. 14. Basal inferior LV wall motion is hypokinetic. 15. Mid inferior LV wall motion is hypokinetic. 16. The right ventricle is normal in size and function. 17. LA is moderately dilated 34-39 ml/m2 18. The right atrium is normal in size. TOOLING INSPECTOR: Karla Hardwick RDCS
[2016-12-05] MEDS: ALBUTEROL NEBULIZED 2.5 MG/3 ML INHALATION SCH ×4 (11:22→19:56)
[2016-12-05 12:11] LABS: Glucose,Whole Blood 145 mg/dL (75-99)
--- NOTE | 2016-12-05 15:38 | P.PN ---
Subjective Principal diagnosis: CHF This is a pleasant 85-year-old gentleman who follows regularly with Dr. Bartlett in the office. He has a known history of severe cardiomyopathy, chronic persistent atrial fibrillation, admitted to the hospital with congestive cardiac failure. He continues to diurese well on IV Lasix. Creatinine today is 1.7. Overall patient is feeling much better today. Edema is down, breathing is stable. We will discontinue the IV Lasix today and start him on oral diuretics. Plan for possible discharge in 24 hours if stable. Objective - Vital Signs Vital signs: Vital Signs Temp 97.3 F L 12/05/16 08:00 Pulse 63 12/05/16 12:00 Resp 18 12/05/16 04:00 BP 132/80 12/05/16 12:00 Pulse Ox 93 L 12/05/16 12:00 Intake & Output 12/04/16 12/05/16 12/05/16 18:59 06:59 18:59 Intake Total 180 380 Output Total 1000 350 550 Balance -820 -350 -170 Weight 97.2 kg Intake: Oral 180 380 Output: Urine 1000 350 550 Other: Voiding Method Toilet Toilet Urinal Urinal # Voids 1 # Bowel Movements 1 - Exam PHYSICAL EXAMINATION: HEENT: Head is atraumatic, normocephalic. Pupils equal, round. Neck is supple. There is elevated jugular venous pressure. HEART EXAMINATION: S1 and S2 irregular irregular systolic murmur heard. CHEST EXAMINATION: Lungs are clear with improvement in air entry to bilateral bases. ABDOMEN: Soft, obese, nontender. Bowel sounds are heard. No organomegaly noted. EXTREMITIES: 2+ peripheral pulses with trace evidence of peripheral edema and no calf tenderness noted. NEUROLOGIC patient is awake, alert and oriented -3. . - Labs CBC & Chem 7: 12/05/16 05:43 12/05/16 05:43 Labs: Abnormal Lab Results - Last 24 Hours (Table) 12/04/16 12/04/16 12/05/16 Range/Units 16:49 21:14 05:43 RBC 4.20 L (4.30-5.90) m/uL Hgb 12.2 L (13.0-17.5) gm/dL RDW 15.6 H (11.5-15.5) % PT (9.0-12.0) sec BUN (9-20) mg/dL Creatinine (0.66-1.25) mg/dL Glucose (74-99) mg/dL POC Glucose (mg/dL) 135 H 142 H (75-99) mg/dL 12/05/16 12/05/16 12/05/16 Range/Units 05:43 05:43 06:12 RBC (4.30-5.90) m/uL Hgb (13.0-17.5) gm/dL RDW (11.5-15.5) % PT 13.6 H (9.0-12.0) sec BUN 58 H (9-20) mg/dL Creatinine 1.70 H (0.66-1.25) mg/dL Glucose 157 H (74-99) mg/dL POC Glucose (mg/dL) 170 H (75-99) mg/dL 12/05/16 Range/Units 12:09 RBC (4.30-5.90) m/uL Hgb (13.0-17.5) gm/dL RDW (11.5-15.5) % PT (9.0-12.0) sec BUN (9-20) mg/dL Creatinine (0.66-1.25) mg/dL Glucose (74-99) mg/dL POC Glucose (mg/dL) 145 H (75-99) mg/dL Assessment and Plan (1) Systolic CHF, acute on chronic Status: Acute (2) Chronic a-fib Status: Acute (3) Diabetes Status: Acute (4) HTN (hypertension) Status: Acute (5) Hyperlipemia Status: Acute (6) PVD (peripheral vascular disease) Status: Acute (7) Pacemaker Status: Acute (8) Ischemic cardiomyopathy Status: Acute Plan: From cardiology's perspective, we will recommend to discontinue IV Lasix . Start on oral diuretics. BNP level down to 1780 today. Plan for possible discharge home in the morning if stable. DNP note has been reviewed, I agree with a documented findings and plan of care. Patient was seen and examined.
--- NOTE | 2016-12-05 15:38 | P.PN ---
Subjective 85-year-old gentleman with history of systolic heart failure is admitted to the hospital from [place]. Patient probably has a history of heart failure with a EF of around 35% in the past. Patient over the last week. Has gained over 10 pounds. States that he has been compliant his diet and fluid resection. Patient was seen by his primary care doctor increase his Lasix dose from 20 mg a 40 mrem however patient continue to have difficulty breathing and increased swelling in his lower extremities hence was sent ER. Patient was triaged to [facility] for higher level of care. States to be feeling slightly better however continues to have difficulty breathing. Patient does complain of orthopnea and PND at this time. Denies having any chest pain, nausea, abdominal pain, change in bowel habits, urinary urgency or frequency. Patient currently has a Schwartz catheter at [facility] . Patient apparently has been weak over the last few weeks. 12/02/2016 States to be feeling significantly better. Denies having any chest pain. Patient is able to lay flat or night. Denies having any breathing difficulty. States that this is a Best he has felt in over a month. 12/03/16 States to feeling slightly better. States to be weak. Has not had a bm in a few days. 12/04/16 Was tired with minimal exertion this am. however was able to ambulate over 100ft without difficulty. No complaints of chest pain, n/v, FRED during my examination. 12/05/2016 Patient appeared to be in good spirits. Denies having any orthopnea or PND. Was able to ambulate without any difficulty. Denies having any chest pain, nausea, vomiting, difficulty in breathing at this time. Objective - Vital Signs Vital signs: Vital Signs Temp 97.3 F L 12/05/16 08:00 Pulse 63 12/05/16 12:00 Resp 18 12/05/16 04:00 BP 132/80 12/05/16 12:00 Pulse Ox 93 L 12/05/16 12:00 Intake & Output 12/04/16 12/05/16 12/05/16 18:59 06:59 18:59 Intake Total 180 380 Output Total 1000 350 550 Balance -820 -350 -170 Weight 97.2 kg Intake: Oral 180 380 Output: Urine 1000 350 550 Other: Voiding Method Toilet Toilet Urinal Urinal # Voids 1 # Bowel Movements 1 - Exam Gen. appearance alert oriented 3 no distress Lungs good air movement no crackles appreciated today no rhonchi noted. Heart S1-S2 heard S3 is not appreciated no murmurs appreciated Abdomen is soft nontender organomegaly Neurologically no focal motor or sensory deficits appreciated Lower extremities trace pitting edema bilaterally noted.Improving. - Labs CBC & Chem 7: 12/05/16 05:43 12/05/16 05:43 Labs: Abnormal Lab Results - Last 24 Hours (Table) 12/04/16 12/04/16 12/05/16 Range/Units 16:49 21:14 05:43 RBC 4.20 L (4.30-5.90) m/uL Hgb 12.2 L (13.0-17.5) gm/dL RDW 15.6 H (11.5-15.5) % PT (9.0-12.0) sec BUN (9-20) mg/dL Creatinine (0.66-1.25) mg/dL Glucose (74-99) mg/dL POC Glucose (mg/dL) 135 H 142 H (75-99) mg/dL 12/05/16 12/05/16 12/05/16 Range/Units 05:43 05:43 06:12 RBC (4.30-5.90) m/uL Hgb (13.0-17.5) gm/dL RDW (11.5-15.5) % PT 13.6 H (9.0-12.0) sec BUN 58 H (9-20) mg/dL Creatinine 1.70 H (0.66-1.25) mg/dL Glucose 157 H (74-99) mg/dL POC Glucose (mg/dL) 170 H (75-99) mg/dL 12/05/16 Range/Units 12:09 RBC (4.30-5.90) m/uL Hgb (13.0-17.5) gm/dL RDW (11.5-15.5) % PT (9.0-12.0) sec BUN (9-20) mg/dL Creatinine (0.66-1.25) mg/dL Glucose (74-99) mg/dL POC Glucose (mg/dL) 145 H (75-99) mg/dL Assessment and Plan Plan: #1 acute exacerbation of systolic heart failure #2 history of DVT #3 history of hypertension #4 history of dyslipidemia #5 diabetes mellitus type 2 #6 acute kidney injury secondary to #1 #7 nonsustained VT #86 sinus syndrome status post pacemaker placement #9 Chronic hypoxic respiratory failure on 2-3 l at home. Plan Change diuretics to Lasix 40 twice a day by mouth. Slight worsening of creatinine monitor for another 24 hours prior to discharge home with home care. Other medications are stable. Continue ongoing care.
[2016-12-05 17:02] LABS: Glucose,Whole Blood 138 mg/dL (75-99)
[2016-12-05] MEDS: FUROSEMIDE 40 MG TAB PO SCH (17:43)
[2016-12-05] MEDS ORDERED: WARFARIN 7.5 MG TAB PO ONE (18:00)
[2016-12-05 21:23] LABS: Glucose,Whole Blood 148 mg/dL (75-99)
[2016-12-05] MEDS: MIRTAZAPINE 15 MG TAB PO SCH (21:36)
[2016-12-06] MEDS: HYDROcodone/APAP 7.5-325MG 1 EACH TAB PO PRN (04:58)
[2016-12-06 05:37] LABS: Glucose,Whole Blood 126 mg/dL (75-99)
[2016-12-06] MEDS: INSULIN LISPRO (humaLOG) 300 UNIT/3 ML VIAL SQ SCH ×2 (06:44→12:48)
[2016-12-06 07:04] LABS: INR 1.4 (<1.1); Prothrombin Time 13.9 sec (9.0-12.0)
[2016-12-06] MEDS ORDERED: PANTOPRAZOLE 40 MG TABLET PO SCH (07:30)
[2016-12-06] MEDS: FUROSEMIDE 40 MG TAB PO SCH (08:08)
[2016-12-06] MEDS: INSULIN DETEMIR 100 UNIT/ML 10 ML VIAL SQ SCH (08:08)
[2016-12-06] MEDS: LISINOPRIL 10 MG TAB PO SCH (08:08)
[2016-12-06] MEDS: ATENOLOL 25 MG TAB PO SCH (08:08)
[2016-12-06] MEDS: ISOSORBIDE MONONITRATE ER 60 MG TAB.ER.24H PO SCH (08:08)
[2016-12-06] MEDS: POTASSIUM CHLORIDE ER 20 MEQ TAB.ER PO SCH (08:08)
[2016-12-06] MEDS: SPIRONOLACTONE 25 MG TAB PO SCH (08:08)
[2016-12-06 08:13] VITALS: TEMP 98
[2016-12-06] MEDS: ALBUTEROL NEBULIZED 2.5 MG/3 ML INHALATION SCH ×2 (08:26→11:53)
[2016-12-06 10:25] LABS: Anion Gap 15 mmol/L; Blood Urea Nitrogen 60 mg/dL (9-20); Calcium 9.4 mg/dL (8.4-10.2); Carbon Dioxide 23 mmol/L (22-30); Chloride 104 mmol/L (98-107); Glucose 131 mg/dL (74-99); Non-African American GFR(MDRD) 50 (>60 ml/min/1.73 sqM); Potassium 4.7 mmol/L (3.5-5.1); Sodium 142 mmol/L (137-145)
[2016-12-06 11:59] LABS: Glucose,Whole Blood 310 mg/dL (75-99)
[2016-12-06 14:16] VITALS: BP 110/66; PULSE 105
--- NOTE | 2016-12-06 14:23 | P.PN ---
Subjective Principal diagnosis: CHF This is a pleasant 85-year-old gentleman who follows regularly with Dr. Bartlett in the office. He has a known history of severe cardiomyopathy, chronic persistent atrial fibrillation, admitted to the hospital with congestive cardiac failure. He continues to diurese well on IV Lasix. Creatinine today is 1.7. Overall patient is feeling much better today. Edema is down, breathing is stable. Plans being made to be discharged home today. Objective - Vital Signs Vital signs: Vital Signs Temp 98.0 F 12/06/16 08:00 Pulse 80 12/06/16 12:05 Resp 18 12/06/16 04:00 BP 110/66 12/06/16 12:00 Pulse Ox 100 12/06/16 12:00 Intake & Output 12/05/16 12/06/16 12/06/16 18:59 06:59 18:59 Intake Total 580 240 Output Total 1150 580 Balance -570 -580 240 Weight 92.5 kg Intake: Oral 580 240 Output: Urine 1150 580 Other: Voiding Method Urinal Urinal # Voids 1 1 # Bowel Movements 1 - Exam PHYSICAL EXAMINATION: HEENT: Head is atraumatic, normocephalic. Pupils equal, round. Neck is supple. There is elevated jugular venous pressure. HEART EXAMINATION: S1 and S2 irregular irregular systolic murmur heard. CHEST EXAMINATION: Lungs are clear with improvement in air entry to bilateral bases. ABDOMEN: Soft, obese, nontender. Bowel sounds are heard. No organomegaly noted. EXTREMITIES: 2+ peripheral pulses with trace evidence of peripheral edema and no calf tenderness noted. NEUROLOGIC patient is awake, alert and oriented -3. . - Labs CBC & Chem 7: 12/05/16 05:43 12/06/16 06:21 Labs: Abnormal Lab Results - Last 24 Hours (Table) 12/05/16 12/05/16 12/06/16 Range/Units 17:00 21:11 05:35 PT (9.0-12.0) sec BUN (9-20) mg/dL Creatinine (0.66-1.25) mg/dL Glucose (74-99) mg/dL POC Glucose (mg/dL) 138 H 148 H 126 H (75-99) mg/dL 12/06/16 12/06/16 12/06/16 Range/Units 06:21 06:21 11:51 PT 13.9 H (9.0-12.0) sec BUN 60 H (9-20) mg/dL Creatinine 1.35 H (0.66-1.25) mg/dL Glucose 131 H (74-99) mg/dL POC Glucose (mg/dL) 310 H (75-99) mg/dL Assessment and Plan (1) Systolic CHF, acute on chronic Status: Acute (2) Chronic a-fib Status: Acute (3) Diabetes Status: Acute (4) HTN (hypertension) Status: Acute (5) Hyperlipemia Status: Acute (6) PVD (peripheral vascular disease) Status: Acute (7) Pacemaker Status: Acute (8) Ischemic cardiomyopathy Status: Acute Plan: From cardiology's perspective, patient may be able to be discharged home today. We'll make him a follow-up appointment to see Dr. Bartlett in the office post discharge. DNP note has been reviewed, I agree with a documented findings and plan of care. Patient was seen and examined.
[2016-12-06 15:07] LABS: Glucose,Whole Blood 75 mg/dL (75-99)
[2016-12-06 15:30] LABS: Glucose,Whole Blood 92 mg/dL (75-99)
[2016-12-06] MEDS ORDERED: WARFARIN 7.5 MG TAB PO ONE (18:00)
--- NOTE | 2016-12-07 13:52 | DS ---
DATE OF ADMISSION: 11/30/2016 DATE OF DISCHARGE: 12/06/2016 FINAL DIAGNOSES: 1. Congestive heart failure, acute exacerbation, with acute on chronic systolic dysfunction with ejection fraction about 40 to 50%. 2. History of deep venous thrombosis. 3. History of hypertension. 4. History of dyslipidemia. 5. Diabetes mellitus type 2. 6. Acute renal failure secondary from congestive heart failure and prerenal factors. 7. Nonsustained ventricular tachycardia. 8. History of atrial fibrillation. 9. History of coronary artery disease. 10. History of cerebrovascular accident, transient ischemic attack. 11. History of dementia. 12. Diabetes mellitus type 2. 13. Hypertension. 14. Hyperlipidemia. 15. History of pulmonary embolus. 16. History of rheumatoid arthritis. 17. History of peripheral vascular disease. 18. History of constipation. 19. History of bowel obstruction. 20. History of hiatal hernia. 21. Chronic hypoxic respiratory failure on home oxygen 2 liters nasal cannula. 22. History of insomnia. 23. History of cholecystectomy. 24. History of cardiac catheterization. 25. History of degenerative joint disease. 26. History of pacemaker. 27. History of anxiety. 28. Remote history nicotine dependence. 29. History of EtOH. 30. FULL CODE. DISCHARGE DISPOSITION: The patient will be discharged in stable condition with guarded prognosis. Total time taken 35 minutes. HISTORY OF PRESENT ILLNESS: This 85-year-old gentleman with a past medical problems being followed by Dr. Pj Curtis in the outpatient setting, admitted for congestive heart failure, acute exacerbation. Ejection fraction noted as earlier. Patient treated with IV diuretics. Patient improved. Cardiology saw the patient. Creatinine is 1.35 at this time. Hemoglobin is 12.2. The patient will be discharged in stable condition with guarded prognosis. On exam, vitals are stable. CARDIOVASCULAR SYSTEM: S1, S2. RESPIRATORY: Breath sounds diminished at bases. A few scattered rhonchi. ABDOMEN: Soft. NERVOUS SYSTEM: No focal deficits. DISCHARGE ADVICE: 1. Diet cardiac. 2. Activity limited until follow-up. 3. Follow up with Dr. Pj Curtis in 2 to 3 days. 4. CBC, BMP being followed by the team as advised. Medications are as recommend are as follows: 1. Magnesium oxide 40 mg p.o. b.i.d. 2. Xanax 0.25 p.o. t.i.d. 3. Albuterol HFA 2 puffs q.i.d. p.r.n. and nebulizer q.i.d. p.r.n. 4. Atenolol 25 mg p.o. b.i.d. 5. Flexeril 10 mg p.o. t.i.d. 6. Cymbalta 30 mg p.o. b.i.d. 7. Colace 100 mg p.o. daily. 8. Aricept 10 mg p.o. daily. 9. Vitamin D2, 250,000 weekly. 10. Iron sulfate 325 mg p.o. b.i.d. 11. Lasix 40 mg p.o. b.i.d. 12. Melrose 7.5 t.i.d. p.r.n. 13. Levemir 10 units subcutaneously daily. 14. Imdur ER 60 mg daily. 15. Zestril 10 mg daily. 16. Milk of magnesia 2.4 grams p.o. q.h.s. 17. Remeron 30 mg q.h.s. 18. Multivitamins 1 p.o. daily. 19. Niacin ER 5 mg p.o. q.h.s. 20. Prilosec 20 mg a.c. breakfast 21. MiraLAX 17 grams p.o. daily. 22. Klor-Con 20 mEq p.o. b.i.d. 23. Aldactone 25 mg p.o. daily. 24. Coumadin 5 mg p.o. daily. 25. Trazodone 150 mg p.o. q.h.s. 26. PT/INR also to be followed up in the outpatient setting. Once again the patient is discharged in stable condition with guarded prognosis. MTDD
== END 2016-12-06 15:52 | disposition home health service (06) | DRG 292 ==
LOC: 6SEL 18:45
PROVIDERS: ADMIT Internal Medicine; ATTEND Internal Medicine
DX: I11.0 Hypertensive heart disease with heart failure (principal); I47.2 Ventricular tachycardia; N17.9 Acute kidney failure, unspecified; J96.11 Chronic respiratory failure with hypoxia; E11.51 Type 2 diabetes mellitus with diabetic peripheral angiopathy without gangrene; I48.1 Persistent atrial fibrillation; I49.5 Sick sinus syndrome; F03.90 Unspecified dementia, unspecified severity, without behavioral disturbance, psychotic disturbance, mood disturbance, and anxiety; J44.9 Chronic obstructive pulmonary disease, unspecified; I25.5 Ischemic cardiomyopathy; I25.10 Atherosclerotic heart disease of native coronary artery without angina pectoris; I50.23 Acute on chronic systolic (congestive) heart failure; E78.5 Hyperlipidemia, unspecified; F41.9 Anxiety disorder, unspecified; G89.29 Other chronic pain; I25.2 Old myocardial infarction; I48.2 Chronic atrial fibrillation; J45.909 Unspecified asthma, uncomplicated; K21.9 Gastro-esophageal reflux disease without esophagitis; M06.9 Rheumatoid arthritis, unspecified; M19.90 Unspecified osteoarthritis, unspecified site; G47.00 Insomnia, unspecified; K44.9 Diaphragmatic hernia without obstruction or gangrene; M54.5 Low back pain; Z79.01 Long term (current) use of anticoagulants; Z79.4 Long term (current) use of insulin; Z79.899 Other long term (current) drug therapy; Z87.891 Personal history of nicotine dependence; Z95.0 Presence of cardiac pacemaker; Z96.612 Presence of left artificial shoulder joint; Z96.653 Presence of artificial knee joint, bilateral; Z99.81 Dependence on supplemental oxygen; Z88.5 Allergy status to narcotic agent; Z88.0 Allergy status to penicillin; Z88.7 Allergy status to serum and vaccine; Z88.8 Allergy status to other drugs, medicaments and biological substances
CPT/HCPCS: 71020; 80048; 80053; 83036; 83735; 83880; 85025; 85610; 93306; 94640; 94760